=== PATIENT | female | born 1945 | race Two or more races ===

== ENCOUNTER 2021-09-11 05:23 | Day surgery (SDC) | payer OTHER ==
[~2021-09-11 05:23] MED LIST: BRILINTA60 MG PO; CARVEDILOL3.125 MG PO; ENALAPRIL MALE2.5 MG PO; NASAL MIST126 ML; ROSUVASTATIN CA40 MG PO
[2021-09-11] MEDS ORDERED: ULTRACET PO (08:52)
[2021-09-11] MEDS ORDERED: MACROBID 100 M100 MG PO (08:52)
== END 2021-09-11 16:02 | disposition home or self-care (01) ==
LOC: CIR.AMB 05:23
PROVIDERS: ATTEND Obstetrics & Gynecology Gynecology
DX: N81.12 Cystocele, lateral (principal); N81.11 Cystocele, midline; Q51.828 Other congenital malformations of cervix; K64.9 Unspecified hemorrhoids; I10 Essential (primary) hypertension; I25.2 Old myocardial infarction; E78.00 Pure hypercholesterolemia, unspecified; Z79.82 Long term (current) use of aspirin; Z20.822 Contact with and (suspected) exposure to COVID-19